=== PATIENT | female | born 1970 | race Caucasian/White ===

== ENCOUNTER 2017-01-29 08:18 | Day surgery (SDC) | payer OTHER ==
[2017-01-26 17:50] VITALS: BMI 25.8
[2017-01-29] VITALS (11 sets, daily range): BP systolic 87–137; BP diastolic 43–71; PULSE 58–77; RESP 14–25; Ht 160 cm; Wt 66.5 kg
[~2017-01-29] VITALS: Ht 160 cm; Wt 66.5 kg
[~2017-01-29 08:18] MED LIST: LIDOCAINE 2% (SDV) 5 ML INJ ONE; PREPARATION H
[2017-01-29 09:48] LABS: ADD SCAN DIFF NO
[2017-01-29 09:49] LABS: BASOPHILS % 0.6 % (0.0-2.0); EOSINOPHILS # 0.1 10^3/ul (0.0-0.5); EOSINOPHILS % 2.3 % (0.0-7.0); HEMATOCRIT 35.2 % (37.0-47.0); HEMOGLOBIN 10.9 g/dl (12.0-16.0); LYMPHOCYTES % 38.1 % (15.0-51.0); MEAN CORPUSCULAR HEMOGLOBIN 26.5 pg (29.0-33.0); MEAN CORPUSCULAR VOLUME 85.6 fl (82.0-101.0); MEAN PLATELET VOLUME 9.8 fl (7.4-10.4); MONOCYTE # 0.4 10^3/ul (0.3-0.9); MONOCYTES % 6.7 % (0.0-11.0); NEUTROPHIL # 2.7 10^3/ul (1.6-7.5); NEUTROPHILS % 52.1 % (39.0-77.0); PLATELET COUNT 245 10^3/UL (140-415); RED BLOOD COUNT 4.11 10^6/ul (4.20-5.40); RED CELL DISTRIBUTION WIDTH 15.5 % (11.5-14.5); WHITE BLOOD COUNT 5.2 10^3/ul (4.8-10.8)
[2017-01-29] MEDS ORDERED: CEFAZOLIN 2 GM/50 ML (PMX) 50 ML IVPB ONE (10:00)
[2017-01-29] MEDS ORDERED: SOD CHLORIDE 0.9% 1,000 ML IV ONE (10:00)
[2017-01-29 10:02] LABS: INR 1.01; PROTIME 13.3 Sec (12.2-14.2)
[2017-01-29 10:03] LABS: PARTIAL THROMBOPLASTIN TIME 27.3 Sec (25.0-35.0)
[2017-01-29 10:17] LABS: CALCIUM 7.9 mg/dl (8.4-10.2); CREATININE 0.55 mg/dl (0.44-1.00)
[2017-01-29] MEDS ORDERED: NEOSTIGMINE 3 MG/3 ML SYRINGE ONE (11:58)
[2017-01-29] MEDS ORDERED: ONDANSETRON 4 MG INJ ONE (11:58)
[2017-01-29] MEDS ORDERED: PROPOFOL 20 ML ONE (11:58)
[2017-01-29] MEDS ORDERED: CEFAZOLIN 1 GM INJ ONE (11:58)
[2017-01-29] MEDS ORDERED: ROCURONIUM 50 MG INJ ONE (11:58)
[2017-01-29] MEDS ORDERED: GLYCOPYRROLATE 0.4 MG INJ ONE (11:58)
[2017-01-29] MEDS ORDERED: MIDAZOLAM 1 MG/ML 2 ML INJ ONE (11:58)
[2017-01-29] MEDS ORDERED: FENTAnyl 50 MCG/ML VIAL ONE (11:58)
[2017-01-29] MEDS ORDERED: DEXAMETHASONE 4 MG/ML 1 ML INJ ONE (11:58)
[2017-01-29] MEDS ORDERED: BUPIVACAINE 0.25%/EPI (SDV) 30 ML INJ ONE (12:37)
[2017-01-29] MEDS ORDERED: BUPIVACAINE 0.25%/EPI (SDV) 30 ML INJ INJ ONE (12:40)
[2017-01-29] MEDS ORDERED: BACITRACIN 0.9 GM OINT ONE (13:44)
--- NOTE | 2017-01-29 13:58 | OPR ---
Date/Time of Note Date/Time of Note DATE: 01/29/17 TIME: 13:53 Operative Report Procedure Date: Jan 29, 2017 Preoperative Diagnosis Internal/external hemorrhoids grade 3 Postoperative Diagnosis Internal/external hemorrhoids grade 3 Operation Performed 1. Exam under anesthesia. 2. Internal/external hemorrhoidectomy 3. Rigid sigmoidoscopy Surgeon: CHELSEA CONRAD MD Anesthesia: general Anesthesiologist: Andrew Gordon M.D. Estimated Blood Loss: minimal Specimens Internal/external hemorrhoids Complications: None Pt Condition Post Procedure: stable Disposition: PACU Indications The patient is a 46-year-old female who presented to the office complaining of hemorrhoids. These have been present for approximately 3 years. It was associated pain and bleeding. The patient had tried various creams and suppositories with minimal relief. She was scheduled for internal/external hemorrhoidectomy, exam under anesthesia and rigid sigmoidoscopy to prevent further palpitations of hemorrhoid disease. All risks and benefits of the procedure including, but not limited to: Wound infection, excessive bleeding, prolonged wound healing, anal incontinence, anal stricture, hemorrhoid recurrence, etc. were all explained to the patient in full detail. She fully understood and wished to proceed with the procedure. Informed consent was obtained. Operative\Procedure Findings Internal/external hemorrhoids Procedure Description The patient was brought to the operating room and placed supine on the operating table. Bilateral sequential compression devices were placed on both lower extremities. A dose of broad-spectrum perioperative intravenous antibiotics was given. The patient had administered a fleets enema the night before surgery. After the induction of smooth general anesthesia the patient was placed in the lithotomy position using Brian stirrups. The buttocks was taped apart. The anal and perineal area were then prepped and draped in standard surgical fashion. After performance of the surgical timeout 0.25% Marcaine with epinephrine was injected circumferentially around the anal area and the hemorrhoidal complexes. Digital rectal exam showed no palpable masses. All hemorrhoids were then excised in the following fashion: The hemorrhoid columns were grasped with a Prater clamp. The external component was incised using the cutting mode of the electrocautery. The external and internal hemorrhoid columns were then transected using the LigaSure device. The specimens were then passed off the field. Hemostasis then inspected for and noted to be adequate. The skin of the external components were reapproximated using a running locking 3-0 Monocryl suture. Further local anesthesia was applied. A rigid sigmoidoscopy was performed and showed hemostasis. There were no masses visualized on rigid sigmoidoscopy. Irrigation was then done. Bacitracin was applied over the wounds. Sterile dressing was applied. The patient was awoken from anesthesia and transported to the recovery room in stable condition. All counts were correct at the end of the case 2. CHELSEA CONRAD MD Jan 29, 2017 13:58
[2017-01-29] MEDS ORDERED: TRIMETHOBENZAMIDE 100 MG/ML VIAL IM PRN (14:00)
[2017-01-29] MEDS ORDERED: OXYCODONE/ACETAMINOPHEN (5/325) TAB PO PRN ×2 (14:00)
[2017-01-29] MEDS ORDERED: MIDAZOLAM 1 MG/ML 2 ML INJ IV PRN (14:00)
[2017-01-29] MEDS ORDERED: ONDANSETRON 4 MG INJ IV PRN ×2 (14:00)
[2017-01-29] MEDS ORDERED: LABETALOL HCL 20MG INJ IV PRN (14:00)
[2017-01-29] MEDS ORDERED: HYDROmorphONE (0.2 MG/ML) 10ML SYG IV PRN ×2 (14:00)
[2017-01-29] MEDS ORDERED: FENTAnyl 50 MCG/ML VIAL IV PRN ×3 (14:00)
[2017-01-29] MEDS ORDERED: DIPHENHYDRAMINE 50 MG INJ IV PRN (14:00)
[2017-01-29] MEDS ORDERED: EPHEDrine SULFATE 50 MG/5 ML SYG IV PRN (14:00)
[2017-01-29] MEDS ORDERED: morphine 2 MG INJ IV PRN (14:00)
[2017-01-29] MEDS ORDERED: hydrALAzine 20 MG INJ IV PRN (14:00)
[2017-01-29] MEDS ORDERED: KETOROLAC 30 MG INJ IV PRN (14:00)
[2017-01-29] MEDS ORDERED: IBUPROFEN 600 MG TAB PO PRN (14:00)
[2017-01-29] MEDS ORDERED: MEPERIDINE 25 MG INJ IV PRN (14:00)
[2017-01-29] MEDS: HYDROmorphONE (0.2 MG/ML) 10ML SYG IV PRN ×5 (14:01→14:30)
== END 2017-01-29 17:30 | disposition home or self-care (01) ==
LOC: SDS 08:18
PROVIDERS: ATTEND Surgery
DX: K64.2 Third degree hemorrhoids (principal)
CPT/HCPCS: 46260; 80048; 84703; 85025; 85610; 85730; 88304; J0690; J1100; J1170; J2250; J2405; J2710; J3010; Z7512; Z7610